=== PATIENT | male | born 1940 | race Caucasian/White ===

== ENCOUNTER 2020-01-18 15:43 | Emergency (ER) | payer BC ==
[~2020-01-18] VITALS: Ht 162.6 cm; Wt 55.0 kg
[2020-01-18 15:45] VITALS: BP 166/90
--- NOTE | 2020-01-18 17:50 | NUR ---
TASK RN: RICK
--- NOTE | 2020-01-18 18:03 | NUR ---
TASK RN: [id number]
--- NOTE | 2020-01-18 18:34 | NUR ---
PT HERE, PLACED IN 9
--- NOTE | 2020-01-18 18:45 | NUR ---
REPORT GIVEN TO JEREMIE GEIGER
--- NOTE | 2020-01-18 18:59 | NUR ---
REPORT RECIEVED FROM ANNE GEIGER. PT RESTING IN BED, NO S/S OF DISTRESS
[2020-01-18] MEDS ORDERED: CEFTRIAXONE 1,000 MG IM ONE (19:00)
[2020-01-18] MEDS ORDERED: CEFTRIAXONE 1,000 MG ONE (19:15)
== END 2020-01-18 20:06 | disposition home or self-care (01) ==
LOC: ED 19:46
DX: L03.113 Cellulitis of right upper limb (principal); I10 Essential (primary) hypertension; I48.91 Unspecified atrial fibrillation; F17.210 Nicotine dependence, cigarettes, uncomplicated; M19.90 Unspecified osteoarthritis, unspecified site
CPT/HCPCS: 73130; 96372; 99283; 99406; J0696